=== PATIENT | female | born 1935 | race Caucasian/White ===

== ENCOUNTER → 2017-01-24 | Outpatient (CLI) | payer OTHER, BC ==
[~2017-01-24] VITALS: Ht 144.8 cm; Wt 56.7 kg
[~2017-01-24] MED LIST: ACTONEL150 MG PO; BENTYL 10 MG CA10 MG PO; BUTRANS1 EAC1 TD; FLOMAX0.4 MG PO; FLONASE 0.05%50 MCG NASAL; LANSOPRAZOLE30 MG PO; LUMIGAN2.5 M1 OP; MACROBID 100 M100 MG PO; MIRALAX17 GM PO; MOBIC7.5 MG PO; NITROFURANTOIN100 MG PO; NORVASC5 MG PO; OXYBUTYNIN ER PO; PRINIVIL20 MG PO; RED YEAST RICE600 MG PO; TRAMADOL 50 MG50 MG PO; XALATAN2.5 ML OPHTHALMIC
[2017-01-24 11:49] VITALS: BP 192/86
== END ==
LOC: PAIN 07:08
DX: M47.896 Other spondylosis, lumbar region (principal); M41.86 Other forms of scoliosis, lumbar region; R20.0 Anesthesia of skin

== ENCOUNTER → 2017-01-29 | Outpatient (CLI) | payer OTHER, BC | LOC: MRI 10:04 | DX: M47.896 Other spondylosis, lumbar region (principal); M41.86 Other forms of scoliosis, lumbar region; R20.0 Anesthesia of skin ==

== ENCOUNTER → 2017-01-30 | Outpatient (CLI) | payer OTHER, BC ==
[~2017-01-30] VITALS: Ht 144.8 cm; Wt 56.2 kg
[2017-01-30 10:53] VITALS: BP 177/75
== END ==
LOC: PAIN 07:13
DX: M47.896 Other spondylosis, lumbar region (principal); M41.86 Other forms of scoliosis, lumbar region